=== PATIENT | male | born 1955 | race Asian ===

== ENCOUNTER 2022-03-26 12:52 | Emergency (ER) | payer OTHER ==
[~2022-03-26] VITALS: Ht 167.6 cm; Wt 68.9 kg
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
--- NOTE | 2022-03-26 13:55 | NUR ---
PATIENT TAKEN TO CT VIA [facility]
[2022-03-26] MEDS ORDERED: TDAP [DIPH/PERTUSSIS/TET] 0.5 ML VIAL IM ONE ×2 (13:59→14:00)
--- NOTE | 2022-03-26 15:40 | NUR ---
dr rothman made aware of flexeril prescription for pt
--- NOTE | 2022-03-26 15:43 | NUR ---
Patient discharged to home in stable condition accompanied by dtr/family. Written and verbal after care instructions given. Patient verbalizes understanding of instruction.
[2022-03-26] MEDS ORDERED: CYCL10TA9 PO (15:45)
[2022-03-26 15:56] VITALS: BP 128/67
== END 2022-03-26 15:58 | disposition home or self-care (01) ==
LOC: ER 13:03
DX: S16.1XXA Strain of muscle, fascia and tendon at neck level, initial encounter (principal); S05.12XA Contusion of eyeball and orbital tissues, left eye, initial encounter; S00.01XA Abrasion of scalp, initial encounter; M54.2 Cervicalgia; W11.XXXA Fall on and from ladder, initial encounter; Y93.89 Activity, other specified; Y92.89 Other specified places as the place of occurrence of the external cause; Y99.8 Other external cause status
CPT/HCPCS: 99284; 72125; 90471; 90715; 70450; 70486; A6403

== ENCOUNTER 2023-12-30 21:57 | Emergency (ER) | payer MEDICAID, MEDICARE, OTHER ==
[~2023-12-30] VITALS: Ht 167.6 cm; Wt 68.0 kg
[~2023-12-30 21:57] MED LIST: CYCL10TA9 PO
[2023-12-30] MEDS ORDERED: ONDANSETRON HCL/PF 4 MG/2 ML VIAL ONE (23:35)
[2023-12-30] MEDS ORDERED: MORPHINE SULFATE INJ 2 MG/ML DISP.SYRIN ONE (23:35)
[2023-12-30] MEDS: MORPHINE SULFATE INJ 2 MG/ML DISP.SYRIN IV ONE (23:36)
[2023-12-30] MEDS: ONDANSETRON HCL/PF - ER 4 MG/2 ML VIAL IV ONE (23:36)
[2023-12-30 23:51] LABS: BASOPHILS % (AUTO) 0.3 % (0.0-2.0); EOSINOPHILS # (AUTO) 0.1 K/uL (0.0-0.7); EOSINOPHILS % (AUTO) 2.1 % (0.0-6.0); HEMATOCRIT 47 % (39-51); HEMOGLOBIN 15.6 g/dL (13.5-17.5); LYMPHOCYTES # (AUTO) 1.5 K/uL (0.8-4.8); LYMPHOCYTES % (AUTO) 26.4 % (20.0-44.0); MEAN CORPUSCULAR HEMOGLOBIN 30 PG (26.0-33.0); MEAN CORPUSCULAR HGB CONC 33 g/dl (31.0-36.0); MEAN CORPUSCULAR VOLUME 91 fL (80-96); MONOCYTES # (AUTO) 0.4 K/uL (0.1-1.30); MONOCYTES % (AUTO) 6.3 % (2.0-12.0); NEUTROPHILS # (AUTO) 3.7 K/uL (1.8-8.9); NEUTROPHILS % (AUTO) 64.9 % (43.0-81.0); PLATELET COUNT (AUTO) 211 K/uL (150-450); RED BLOOD CELL COUNT(AUTO) 5.19 MIL/uL (4.5-6.0); RED CELL DISTRIBUTION WIDTH 13.2 % (11.5-15.0); WHITE BLOOD COUNT (AUTO) 5.8 K/uL (4.3-11.0)
[2023-12-30 23:53] LABS: APPEARANCE,URINE CLEAR (CLEAR); BILIRUBIN,URINE NEGATIVE (NEGATIVE); BLOOD, URINE 2+ Ery/uL (NEGATIVE); COLOR,URINE YELLOW (YELLOW); KETONES,URINE NEGATIVE (NEGATIVE); LEUKOCYTE ESTERASE ,URINE NEGATIVE (NEGATIVE); NITRITE, URINE NEGATIVE (NEGATIVE); PROTEIN,URINE NEGATIVE (NEGATIVE); UGLUCOSE NEGATIVE (NEGATIVE); UROBILINOGEN,URINE 0.2 EU/dL (0.2)
[2023-12-30 23:58] LABS: ADD URINE CULTURE NO; BACTERIA,URINE Rare /HPF (None Seen); SQUAMOUS EPITHELIAL CELL,UR Few /HPF (None Seen)
[2023-12-30 23:59] LABS: CREATININE 0.8 mg/dL (0.6-1.3); POTASSIUM 3.7 mmol/L (3.5-5.1)
[2023-12-31 00:05] LABS: BILIRUBIN,TOTAL 0.4 mg/dL (0.2-1.0); TOTAL PROTEIN, SERUM 8.2 g/dL (6.4-8.2)
[2023-12-31] MEDS ORDERED: CEPH500T PO (01:13)
[2023-12-31 01:39] VITALS: BP 132/88; TEMP 97.4; O2SAT 96
== END 2023-12-31 01:40 | disposition home or self-care (01) ==
LOC: ER 22:00
DX: N13.9 Obstructive and reflux uropathy, unspecified (principal); R10.2 Pelvic and perineal pain; Z87.438 Personal history of other diseases of male genital organs; Z87.448 Personal history of other diseases of urinary system; R30.0 Dysuria
CPT/HCPCS: 99285; 74176; 96374; 96375; 51702; 85025; 87040; 81001; 36415; 80053; J2405 ×2; J2270

== ENCOUNTER 2024-02-21 15:37 | Emergency (ER) | payer MEDICARE ==
[~2024-02-21] VITALS: Ht 170.2 cm; Wt 63.5 kg
[~2024-02-21 15:37] MED LIST changes: +CEPH500T PO
[2024-02-21] MEDS ORDERED: MECLIZINE HCL 25 MG TABLET ONE (16:12)
[2024-02-21] MEDS: MECLIZINE HCL 12.5 MG TABLET PO ONE (16:14)
[2024-02-21] MEDS: IV NS 0.9% 1,000 ML BAG IV ONE (16:14)
[2024-02-21 16:30] LABS: BASOPHILS % (AUTO) 0.5 % (0.0-2.0); EOSINOPHILS # (AUTO) 0.1 K/uL (0.0-0.7); EOSINOPHILS % (AUTO) 1.9 % (0.0-6.0); HEMATOCRIT 46 % (39-51); HEMOGLOBIN 15.3 g/dL (13.5-17.5); LYMPHOCYTES # (AUTO) 1.4 K/uL (0.8-4.8); LYMPHOCYTES % (AUTO) 29.9 % (20.0-44.0); MEAN CORPUSCULAR HEMOGLOBIN 30 PG (26.0-33.0); MEAN CORPUSCULAR HGB CONC 33 g/dl (31.0-36.0); MEAN CORPUSCULAR VOLUME 91 fL (80-96); MONOCYTES # (AUTO) 0.5 K/uL (0.1-1.30); MONOCYTES % (AUTO) 9.9 % (2.0-12.0); NEUTROPHILS # (AUTO) 2.6 K/uL (1.8-8.9); NEUTROPHILS % (AUTO) 57.8 % (43.0-81.0); PLATELET COUNT (AUTO) 212 K/uL (150-450); RED BLOOD CELL COUNT(AUTO) 5.04 MIL/uL (4.5-6.0); RED CELL DISTRIBUTION WIDTH 13.8 % (11.5-15.0); WHITE BLOOD COUNT (AUTO) 4.6 K/uL (4.3-11.0)
[2024-02-21 16:37] LABS: CALCIUM, SERUM 8.8 mg/dL (8.5-10.1); CARBON DIOXIDE 30 mmol/L (21-32); CHLORIDE 104 mmol/L (98-107); CREATININE 0.8 mg/dL (0.6-1.3); GLUCOSE 106 mg/dL (74-106); POTASSIUM 3.6 mmol/L (3.5-5.1); SODIUM SERUM 141 mmol/L (136-145); UREA NITROGEN, BLOOD 18 mg/dL (7-18)
[2024-02-21] MEDS ORDERED: MECL-159 PO (17:38)
[2024-02-21 18:18] VITALS: BP 133/78; TEMP 98; O2SAT 99
== END 2024-02-21 18:18 | disposition home or self-care (01) ==
LOC: ER 15:46
DX: H81.399 Other peripheral vertigo, unspecified ear (principal); R51.9 Headache, unspecified; Z88.7 Allergy status to serum and vaccine; Z87.448 Personal history of other diseases of urinary system; Z87.438 Personal history of other diseases of male genital organs
CPT/HCPCS: 99285; 96360; 70450; 71045; 93005 ×2; 85025; 80048; 36415; 84484 ×2; J8597; J7030

== ENCOUNTER 2024-06-26 13:44 | Emergency (ER) | payer MEDICARE ==
[~2024-06-26] VITALS: Ht 167.6 cm; Wt 68.0 kg
[~2024-06-26 13:44] MED LIST changes: +MECL-159 PO
[2024-06-26] MEDS ORDERED: MECLIZINE HCL 25 MG TABLET ONE (14:19)
[2024-06-26] MEDS: MECLIZINE HCL 12.5 MG TABLET PO ONE (14:23)
[2024-06-26] MEDS: IV NS 0.9% 1,000 ML BAG IV ONE (14:23)
[2024-06-26 14:43] LABS: BASOPHILS % (AUTO) 0.2 % (0.0-2.0); EOSINOPHILS % (AUTO) 0.8 % (0.0-6.0); HEMATOCRIT 44 % (39-51); LYMPHOCYTES # (AUTO) 1.7 K/uL (0.8-4.8); LYMPHOCYTES % (AUTO) 40.6 % (20.0-44.0); MEAN CORPUSCULAR HEMOGLOBIN 31 PG (26.0-33.0); MEAN CORPUSCULAR HGB CONC 35 g/dl (31.0-36.0); MEAN CORPUSCULAR VOLUME 90 fL (80-96); MONOCYTES # (AUTO) 0.4 K/uL (0.1-1.30); MONOCYTES % (AUTO) 10.3 % (2.0-12.0); NEUTROPHILS # (AUTO) 2.1 K/uL (1.8-8.9); NEUTROPHILS % (AUTO) 48.1 % (43.0-81.0); PLATELET COUNT (AUTO) 195 K/uL (150-450); RED BLOOD CELL COUNT(AUTO) 4.82 MIL/uL (4.5-6.0); RED CELL DISTRIBUTION WIDTH 13.7 % (11.5-15.0); WHITE BLOOD COUNT (AUTO) 4.3 K/uL (4.3-11.0)
[2024-06-26 14:53] LABS: CALCIUM, SERUM 9.1 mg/dL (8.5-10.1); CARBON DIOXIDE 30 mmol/L (21-32); CHLORIDE 104 mmol/L (98-107); GLUCOSE 118 mg/dL (74-106); SODIUM SERUM 140 mmol/L (136-145); UREA NITROGEN, BLOOD 20 mg/dL (7-18)
[2024-06-26] MEDS ORDERED: MECL-159 PO (17:20)
[2024-06-26 17:38] VITALS: BP 145/90; TEMP 98.6; O2SAT 100
== END 2024-06-26 17:39 | disposition home or self-care (01) ==
LOC: ER 13:54
DX: H81.399 Other peripheral vertigo, unspecified ear (principal); R00.2 Palpitations; R11.2 Nausea with vomiting, unspecified
CPT/HCPCS: 99285; 96360; 71045; 93005 ×2; 85025; 80048; 36415; 84484 ×2; J8597; J7030